=== PATIENT | male | born 1955 | race American Indian/Alaskan Native ===

== ENCOUNTER 2021-05-31 18:12 | Emergency (ER) | payer MEDICARE ==
[2021-05-31] MEDS ORDERED: methylPREDNISolone Sod Suc 125 MG in SODIUM CHLORIDE 0.9% 100 ML IV ONE (21:57)
--- NOTE | 2021-05-31 21:57 | Emergency Department Report ---
HPI - General Chief Complaint: Allergic Reaction Time Seen by Provider: 05/31/21 21:56 - HPI HPI: Patient presents with swelling of the lips and tongue. He states that his throat feels tight. This started this morning. He has not changed laundry soap or bath soap. There is no new medication. He has not eaten anything out of the ordinary. He is not sure what triggered. His states that he has felt weak for couple of days and just been under the weather. He was not having any lip swelling until this morning however. There has been no new pet. Patient has had no KELY inhibitor exposure. He is on blood pressure medication, but he does not take an KELY inhibitor according to him and his . He states that the swelling is just progressively worsened throughout the day. He did take Benadryl earlier in the day. That provided minimal symptomatic improvement. ED Past Medical Hx - Past Medical History Hx Hypertension: Yes Additional medical history: High cholesterol - Family History Family history: hypertension - Medications Home Medications: Home Medications Medication Instructions Recorded Confirmed Last Taken Type Famotidine [Pepcid] 20 mg PO BID #10 tablet 06/01/21 Unknown Rx diphenhydrAMINE [Benadryl CAP] 25 mg PO Q6HR PRN #30 capsule 06/01/21 Unknown Rx predniSONE [Deltasone] 50 mg PO QDAY #5 tab 06/01/21 Unknown Rx ED Review of Systems ROS: Stated complaint: MOUTH SWOLLEN/DO NOT FEEL WELL Other details as noted in HPI Comment: All other systems reviewed and negative Constitutional: denies: fever Eyes: denies: vision change ENT: denies: epistaxis Respiratory: denies: cough Cardiovascular: denies: chest pain Endocrine: denies: unexplained weight loss Gastrointestinal: denies: abdominal pain Genitourinary: denies: dysuria Musculoskeletal: denies: back pain Skin: denies: rash Neurological: denies: headache Hematological/Lymphatic: denies: easy bruising Physical Exam - Physical Exam Vital Signs: Vital Signs 05/31/21 18:54 Temperature 97.7 F Pulse Rate 75 Respiratory 20 Rate Blood Pressure 129/73 [Right] O2 Sat by Pulse 97 Oximetry General: Well-developed, well-nourished male in no respiratory distress. There is no stridor. He is not tripoding. He does have angioedema. Physical Exam: HEENT reveals angioedema of both upper and lower lips. This is right-sided and left-sided. Tongue is normal. There is no other facial edema or swelling noted. Oropharynx is clear. Patient does not have laryngeal area edema. There is no erythema or exudate. Neck is supple without meningismus or lymphadenopathy. There is no JVD. Heart is regular rate and rhythm. Lungs are clear bilaterally. Abdomen is soft and protuberant. There is no tenderness. Back reveals no CVA tenderness. Extremities reveal equal pulses. There are no hives noted. There is no edema. There is no deformity. Skin is without hives or erythema. Neurological exam is normal. Patient has cranial nerves II through XII grossly intact. There is no focal motor or sensory deficit. Gait is normal. Back is without CVA tenderness. ED Course Vital Signs 05/31/21 18:54 Temperature 97.7 F Pulse Rate 75 Respiratory 20 Rate Blood Pressure 129/73 [Right] O2 Sat by Pulse 97 Oximetry - Reevaluation(s) Reevaluation #1: 05/31/21 22:19 Medications were ordered. Old records reviewed. Reevaluation #2: 06/01/21 00:14 Patient is feeling better. He has had no worsening symptoms. There seems to be minimal improvement in the edema. Etiology for the edema is not known. He is not on an KELY inhibitor. At this time, he was discharged with symptomatic measures. He has no evidence of airway compromise. ED Medical Decision Making - Medical Decision Making Patient presented with angioedema of unknown etiology. The trigger is not clear. Regardless, he has no throat involvement. There is no tongue involvement. This is affecting the lips. He has not worsened. He has been given medication here. He can follow-up with outpatient evaluation and testing. Critical Care Time: No Critical care attestation.: If time is entered above; I have spent that time in minutes in the direct care of this critically ill patient, excluding procedure time. ED Disposition Clinical Impression: Angioedema Qualifiers: Encounter type: initial encounter Qualified Code(s): T78.3XXA - Angioneurotic edema, initial encounter Disposition: HOME / SELF CARE / HOMELESS Is pt being admited?: No Condition: Stable Additional Instructions: Use ice for swelling. Drink plenty water. See your regular doctor or the referral doctor for recheck. Prescriptions: diphenhydrAMINE [Benadryl CAP] 25 mg PO Q6HR PRN #30 capsule PRN Reason: allergies predniSONE [Deltasone] 50 mg PO QDAY #5 tab Famotidine [Pepcid] 20 mg PO BID #10 tablet Referrals: PRIMARY CAREMD [Referring] - 3-5 Days DANIELLE MOORE MD [Staff Physician] - 3-5 Days
[2021-05-31] MEDS ORDERED: diphenhydrAMINE 50 MG/ML VIAL IV ONE (22:15)
[2021-05-31] MEDS ORDERED: FAMOTIDINE 20 MG/2 ML INJ IV ONE (22:15)
[2021-05-31] MEDS ORDERED: methylPREDNISolone Sod Succinate 125 MG/2 ML INJ IV ONE ×2 (22:29→23:15)
[2021-06-01 01:11] VITALS: BP 133/80
== END 2021-06-01 01:10 | disposition home or self-care (01) ==
LOC: ED 18:12
DX: T78.3XXA Angioneurotic edema, initial encounter (principal); E78.00 Pure hypercholesterolemia, unspecified
CPT/HCPCS: 96374; 96375; 99282; J1200; J2930; J3490